=== PATIENT | female | born 1980 | race Caucasian/White ===

== ENCOUNTER → 2025-01-03 16:24 | Outpatient (CLI) | payer OTHER, SELFPAY ==
--- NOTE | ~2025-01-03 | XR_ITS ---
EXAMINATION: XR chest 2V DATE: 01/03/2025 16:46 INDICATION: 6 days of cough TECHNIQUE: frontal and lateral views of the chest were obtained. COMPARISON: None FINDINGS: The lungs are clear with no focal airspace opacities, pulmonary edema, pleural effusion or pneumothor ax. The cardiomediastinal silhouette is normal. Visualized bones and soft tissues are unremarkable. IMPRESSION: 1. Normal chest radiograph. Reviewed, dictated and finalized at location B. IMPRESSION: 1. Normal chest radiograph.
--- OUTSIDE RECORDS SUMMARY | 2025-01-03 16:32 | XMS_ITS | Referral Summary ---
Author Organization [facility] Medical Office Building B Address [address] [place] [address] Care Team Providers Care Concrete Sculptor Name Role Phone Owen Martinez MD Primary Care Provider Allergies No known active allergies Medications dextroamphetami ne-amphetamine (ADDERALL) 20 mg tablet TK 1 T PO QD B ROSMERY 0 Active aspirin 81 mg enteric coated tabletIndicatio ns:prevention of thrombosis Take 1 tablet (81 mg total) by mouth 2 (two) times a day for 14 days 28 tablet 0 Active cholecalciferol (VITAMIN D-3) 2000 unit capsule Take 1 capsule (2,000 Units total) by mouth daily 30 capsule 0 Active HYDROcodone-padmini taminophen (NORCO) 5-325 mg per tabletIndicatio ns:Pain Take 1-2 tablets every 4-6 hours as needed for pain 23 tablet 0 Active ondansetron (ZOFRAN) 4 mg tabletIndicatio ns:Prevention of Post-Operative Nausea and Vomiting Every 4-6 hours as needed 30 tablet 1 0 Active senna-docusate (PERICOLACE) 8.6-50 mg 1-2 times daily as needed for constipation 60 tablet 1 0 Active Active Problems Problem Noted Date Diagnosed Date Rupture of anterior cruciate ligament of right k nee 03/30/2020 Atopic rhinitis 11/19/2013 Overview (10/11/2016): ALLERGIC RHINITIS NOS Social History Tobacco Use Types Packs/Day Years Used Date Smoking Tobacco: Light Smoker Cigarettes Smokeless Tobacco: Never Alcohol Use Standard Drinks/Week Comments No 0 (1 standard drink = 0.6 oz pur e alcohol) socially Comments Unknown Sex and Gender Information Value Date Recorded Sex Assigned at Not on file Legal Sex Female 11:30 PM DIRECTOR ENGINEERING Gender Identity Not on file Sexual Orientation Not on file Last Filed Vital Signs Vital Sign Reading Time Taken Comments Blood Pressure 130/88 06/14/2024 11:11 AM DIRECTOR ENGINEERING Pulse 83 06/14/2024 11:11 AM DIRECTOR ENGINEERING Temperature 36.8 C (98.3 F) 06/14/2024 11:11 AM DIRECTOR ENGINEERING Respiratory Rate 16 06/14/2024 11:11 AM DIRECTOR ENGINEERING Oxygen Saturation 97% 06/14/2024 11:11 AM DIRECTOR ENGINEERING Inhaled Oxygen Concentration - - Weight 74.8 kg (165 lb) 06/14/2024 11:11 AM DIRECTOR ENGINEERING Height 160 cm (5' 3) 06/14/2024 11:11 AM DIRECTOR ENGINEERING Body Mass Index 29.23 06/14/2024 11:11 AM DIRECTOR ENGINEERING Plan of Treatment Not on file Medical Devices Implanted Type Area Junior Graphic Designer Device Identifier Shelf Expiration Date Model / Serial / Lot [employer] Ar-2324bcc Swivelock C 4.75mm 19.1mm Closed Eyelet Vent [place] Suture - [id number] Implanted:Qty: 1 on 04/26/2020 by Albino Hooker MD at [facility] Right: Knee [employer] 01/03/2024 AR-2324BCC / / [id number] Tightrope Abs, Implant, Open Implanted:Qty: 1 on 04/26/2020 by Albino Hooker MD at [facility] Right: Knee [employer] [id number] 12/03/2024 AR-1588TN- 1 / / [id number] [employer] [id number] Device Fxatn Tightrope Deploying Suture - Sna - [id number] Implanted:Qty: 1 on 04/26/2020 by Albino Hooker MD at [facility] Right: Knee [employer] C1713 02/05/2025 AR-1588BTB -J / NA / [id number] [employer] Ar-1588tb-4 Tightrope 14mm Attachable Round Concave Button Fixation - [id number] Implanted:Qty: 1 on 04/26/2020 by Albino Hooker MD at [facility] Right: Knee [employer] 02/02/2025 AR-1588TB- 4 / / [id number] Depuy Mitek [id number] Truespan Orthocord Nonabsorbable 2 Backstop Braid 24d 2-0 [place] - [id number] Implanted:Qty: 1 on 04/26/2020 by Albino Hooker MD at [facility] Right: Knee Depuy Mitek 07/05/2022 [id number] / / [id number] Lifenet Fgl Flexigraft Graftlink 7.5-10.5mm 60-80mm Frozen Allograft - [id number] - [id number] Implanted:Qty: 1 on 04/26/2020 by Albino Hooker MD at [facility] Right: Knee Lif[employer]et 03/08/2023 FGL / [id number] / Insurance [facility] [place] [address] [facility] Care Teams Concrete Sculptor Relationship Specialty Start Date End Date Owen Martinez MD [address] [place], [place] [address] [address] PCP - General Family Medicine 03/19/20
--- OUTSIDE RECORDS SUMMARY | 2025-01-03 16:32 | XMS_ITS | Clinical Summary ---
Author Organization [facility] Address [address] [place] [address] Care Team Providers Care Dietary Service Aide Name Role Phone Unavailable Primary Care Provider Unavailabl e Immunizations Immunization Administration Dates Next Due Covid-19, Mrna, Lnp-s, Pf, 30 Mcg/0.3 Ml Dose (P fizer) 01/03/2021,12/13/2020 Social History Tobacco Use Types Packs/Day Years Used Date Smoking Tobacco: Never Assessed Comments Unknown Sex and Gender Information Value Date Recorded Sex Assigned at Not on file Legal Sex Female 8:21 AM CDT Gender Identity Not on file Sexual Orientation Not on file Plan of Treatment Health Maintenance Due Date Last Done Comments Hepatitis C Virus (HCV) Screening 1980 TdaP Immunization 1980 Hepatitis B Immunization (1 of 3 - 19+ 3-dose series) 1999 Pap Smear 2001 Cervical Cancer Screening (CCS) 2010 HPV/Cotest 2010 Discussion re Starting/Frequency of Mammograms 2020 Influenza Immunization (#1) 2024 SARS-COV-2 Immunization ( season) 2024 01/03/2021, 12/13/2020 Respiratory Syncytial Virus (RSV) Immunization (Adult) (1 - 1-dose 75+ series) 2055 Meningococcal Immunization (ACWY) Aged Out No longer eligible b ased on patient's age to complete this topic Pneumococcal Immunization Combined Aged Out No longer eligible b ased on patient's age to complete this topic Rotavirus Immunization Aged Out No lo nger eligible based on patient's age to complete this topic
--- OUTSIDE RECORDS SUMMARY | 2025-01-03 16:32 | XMS_ITS | Clinical Summary ---
Author Organization [facility] Medical Office Building B Address [address] [place] [address] Care Team Providers Care Manager Athletics Name Role Phone Owen Martinez MD Primary [...] rhinitis 11/19/2013 Overview (10/11/2016): ALLERGIC RHINITIS NOS Surgical History Surgery Date Site/Laterality Comments TONSILLECTOMY Family History Medical History Relation Name Comments Migraines Other Family history of Migraines; Relation Name Status Comments Other Social History Tobacco Use Types Packs/Day Years Used Date Smoking Tobacco: Light Smoker Cigarettes Smokeless Tobacco: Never Alcohol Use Standard Drinks/Week Comments No 0 (1 standard drink = 0.6 oz pur e alcohol) socially Comments Unknown Sex and Gender Information Value Date Recorded Sex Assigned at Not on file Legal Sex Female 11:30 PM INSTRUCTOR OF NURSING Gender Identity Not on file Sexual Orientation Not on file Obstetrics History Last Filed Vital Signs Vital Sign Reading Time Taken Comments Blood Pressure 130/88 06/14/2024 11:11 AM INSTRUCTOR OF NURSING Pulse 83 06/14/2024 11:11 AM INSTRUCTOR OF NURSING Temperature 36.8 C (98.3 F) 06/14/2024 11:11 AM INSTRUCTOR OF NURSING Respiratory Rate 16 06/14/2024 11:11 AM INSTRUCTOR OF NURSING Oxygen Saturation 97% 06/14/2024 11:11 AM INSTRUCTOR OF NURSING Inhaled Oxygen Concentration - - Weight 74.8 kg (165 lb) 06/14/2024 11:11 AM INSTRUCTOR OF NURSING Height 160 cm (5' 3) 06/14/2024 11:11 AM INSTRUCTOR OF NURSING Body Mass Index 29.23 06/14/2024 11:11 AM INSTRUCTOR OF NURSING Plan of Treatment Health Maintenance Due Date Last Done Comments Breast Cancer Screening-Mammogram 1980 Cervical Cancer Screening 1980 Depression Screening 1980 Hepatitis C Screening 1980 DTaP/Tdap/Td Vaccine (1 - Tdap) 1991 Varicella Vaccines (1 of 2 - 13+ 2-dose series) 1993 Hepatitis B Screening 1998 Regular Well Visit/Exam 18-64 1998 Pneumococcal vaccine <65 (1 of 2 - PCV) 1999 Covid-19 Vaccine (3 - 2023-2 5 season) 2024 01/03/2021, 12/13/2020 Influenza Vaccine (Season Ended) 2025 HPV Vaccines Aged Out No longer eligi ble based on patient's age to complete this topic Medical Devices Implanted Type Area Environmental Inspector Device Identifier Shelf Expiration Date Model / Serial / Lot [employer] Ar-2324bcc Swivelock C 4.75mm 19.1mm Closed Eyelet Vent [place] Suture - [id number] Implanted:Qty: 1 on 04/26/2020 by Albino Hooker MD at [facility] Right: Knee [employer] 01/03/2024 AR-2324BCC / / [id number] Tightrope Abs, Implant, Open Implanted:Qty: 1 on 04/26/2020 by Albino Hooker MD at [facility] Right: Knee [employer] C1713 12/03/2024 AR-1588TN- 1 / / [id number] [employer] [id number] Device Fxatn Tightrope Deploying Suture - Sna - [id number] Implanted:Qty: 1 on 04/26/2020 by Albino Hooker MD at [facility] Right: Knee [employer] C1713 02/05/2025 AR-1588BTB -J / NA / [id number] [employer] Ar-1588tb-4 Tightrope 14mm Attachable Round Concave Button Fixation - [id number] Implanted:Qty: 1 on 04/26/2020 by Albino Hooker MD at [facility] Right: Knee [employer] 02/02/2025 AR-1588TB- 4 / / [id number] Depuy Mitek [id number] Truespan Orthocord Nonabsorbable 2 Backstop Braid 24d 2-0 [place] - [id number] Implanted:Qty: 1 on 04/26/2020 by Albino Hooker MD at [facility] Right: Knee Depuy Mitek 07/05/2022 [id number] / / [id number] Lifenet Fgl Flexigraft Graftlink 7.5-10.5mm 60-80mm Frozen Allograft - [id number] - [id number] Implanted:Qty: 1 on 04/26/2020 by Albino Hooker MD at [facility] Right: Knee Lifenet 03/08/2023 FGL / [id number] / Insurance [facility] Care Teams Manager Athletics Relationship Specialty Start Date End Date Owen Martinez MD [address] [place] [address] [place] [address] PCP - General Family Medicine 03/19/20
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
== END ==
PROVIDERS: PCP Emergency Medicine; Visit Provider Emergency Medicine
DX: R05.9 Cough, unspecified (principal)
CPT/HCPCS: 71046